=== PATIENT | male | born 1960 | race Caucasian/White ===

== ENCOUNTER → 2016-12-23 | Day surgery (SDC) | payer BC ==
[2016-12-16 11:35] VITALS: Ht 180.3 cm; Wt 97.7 kg
[~2016-12-23] VITALS: Ht 180.3 cm; Wt 97.7 kg
[~2016-12-23] MED LIST: ATOR10TA82 PO; LISI-786 PO; MESA800T5 PO; MRC50 PO; SODIUM CHLORIDE 0.9% 500ML 500 ML IV ONE; ZNT/300 PO
--- NOTE | 2016-12-23 14:08 | Endo History and Physical ---
History & Physical Date of Service: Dec 23, 2016. Chief Complaint: Crohn's Referring Physician: Dr. Hugh Li History of Present Illness 56 yo CM who presents for colonoscopy secondary to Crohn's Disease. Past Medical History High Cholesterol, Sleep Apnea, Hypertension, Other Past Surgical History Hx Cardiac Surgery: No Hx Internal Defibrillator: No Hx Pacemaker: No Hx Abdominal Surgery: No Hx of Implantable Prosthesis: No Hx Post-Op Nausea and Vomiting: No Hx Cancer Surgery: No Hx Thoracic Surgery: No Hx Orthopedic: No Hx Urinary Tract Surgery: No Family History IBD Social History Smoking Status: Never Smoker Hx Substance Use: No Hx Alcohol Use: Yes (RARELY) Allergies Coded Allergies: No Known Allergies (Verified , 12/23/16) Uncoded Allergies: NKA (Allergy, Unknown, 01/18/15) No Known Allergies Current Medications Reported Home Medications Medications Dose Route/Sig Max Daily Dose Days Date Category Dose Instructions Asacol Hd (Mesalamine) 800 Mg Tab 2 Tab PO TID 12/16/16 Reported Ranitidine HCl 300 Mg Tab 1 Tab PO HS 05/03/14 Reported Mercaptopurine 50 Mg Tab 1 Tab PO QAM 05/03/14 Reported Zestoretic (Lisinopril & Hydrochlorothiazi) 1 Tab Tab 1 Tab PO QAM 05/03/14 Reported 20/12.5 DOSE Lipitor (Atorvastatin Calcium) 10 Mg Tab 10 Mg PO HS 05/03/14 Reported Vital Signs Weight (Kilograms): 97.73 Height (Feet): 5 Height (Inches): 11 Date Time Temp Pulse Resp B/P Pulse Ox O2 Delivery O2 Flow Rate FiO2 12/23/16 13:48 36.7 85 20 157/97 95 Room Air Physical Exam General Appearance: WD/WN, no apparent distress Respiratory/Chest: Auscultation: breath sounds normal Cardiovascular: Heart Auscultation: RRR Abdomen: Bowel Sounds: normal Inspection & Palpation: soft, non-distended, no tenderness, guarding & rebound Assessment and Plan Assessment: 56 yo CM who presents for colonoscopy secondary to Crohn's Disease. Plan: Proceed with colonoscopy.
--- NOTE | 2016-12-23 14:49 | Discharge Instructions ---
Endoscopy Patient Instructions Date / Procedure(s) Performed Dec 23, 2016. Colonoscopy Allergy Information Coded Allergies: No Known Allergies (Verified , 12/23/16) Uncoded Allergies: NKA (Allergy, Unknown, 01/18/15) No Known Allergies Discharge Date / Findings Dec 23, 2016. Crohn's Disease s/p biopsies Diverticulosis Internal hemorrhoids Medication Instructions OK to resume all medications today as prescribed. Reported Home Medications Medications Dose Route/Sig Max Daily Dose Days Date Category Dose Instructions Asacol Hd (Mesalamine) 800 Mg Tab 2 Tab PO TID 12/16/16 Reported Ranitidine HCl 300 Mg Tab 1 Tab PO HS 05/03/14 Reported Mercaptopurine 50 Mg Tab 1 Tab PO QAM 05/03/14 Reported Zestoretic (Lisinopril & Hydrochlorothiazi) 1 Tab Tab 1 Tab PO QAM 05/03/14 Reported 20/.5 DOSE Lipitor (Atorvastatin Calcium) 10 Mg Tab 10 Mg PO HS 05/03/14 Reported Provider Instructions Activity Restrictions - No exercising or heavy lifting for 24 hours. - Do not drink alcohol the day of the procedure. - Do not drive a car or operate machinery until the day after the procedure. - Do not make any important decisions or sign important papers in 24 hours after the procedure. Following Day: - Return to full activity which may include returning to work/school. Diet Start your diet with liquids and light foods (jello, soup, juice, toast). Then eat your usual diet if not nauseated. Treatment For Common After Affects For mild abdominal pain, bloating, or excessive gas: - Rest - Eat lightly - Lie on right side Follow-Up Information Follow-up with Dr. Hugh Li as scheduled Anesthesia Information What You Should Know You have had a procedure that required some medicine to reduce anxiety and discomfort. This treatment is called moderate sedation. After receiving the treatment, you may be sleepy, but you will be able to breathe on your own. The effects of the treatment may last for several hours. Follow these instructions along with Activity/Diet recommendations noted above: * Do NOT do anything where dizziness or clumsiness would be dangerous. * Rest quietly at home today, then you can be up and about tomorrow. * Have a responsible person stay with you the rest of today. * You may have had an I.V. today. If so, you may take the dressing off later today. Recommendations Call your doctor if: * Trouble breathing * Continuous vomiting for more than 24 hours * Temperature above 101 degrees * Severe abdominal pain or bloating * Pain not relieved by pain medicine ordered * There is increased drainage or redness from any incision * A large amount of rectal bleeding greater than 2-3 tablespoons. (If you had a polyp/s removed or have hemorrhoids, a small amount of blood - from the rectum is to be expected.) * You have any unanswered questions or concerns. IN THE EVENT OF A SERIOUS EMERGENCY, GO TO THE NEAREST EMERGENCY ROOM Your discharge instructions were prepared by provider Michael Vickers. Patient Instructions Signature Page Jasbir Owens Patient (or Guardian) Signature/Date: I have read and understand the instructions given to me by my caregivers. Caregiver/RN/Doctor Signature/Date: The above-named patient and/or guardian has received patient instructions on this date. + Original Patient Signature Page (only) stays with chart. Please make copy for patient.
--- NOTE | 2016-12-23 14:57 | GI REPORT ---
Procedure Date: 12/23/2016 2:07 PM Procedure: Colonoscopy Indications: Disease activity assessment of Crohn's disease of the colon Medicines: Monitored Anesthesia Care Complications: No immediate complications. Estimated Blood Loss: Estimated blood loss: none. Procedure: Pre-Anesthesia Assessment: - Prior to the procedure, a History and Physical was performed, and patient medications and allergies were reviewed. The patient's tolerance of previous anesthesia was also reviewed. The risks and benefits of the procedure and the sedation options and risks were discussed with the patient. All questions were answered, and informed consent was obtained. Prior Anticoagulants: The patient has taken no previous anticoagulant or antiplatelet agents. ASA Grade Assessment: II - A patient with mild systemic disease. After reviewing the risks and benefits, the patient was deemed in satisfactory condition to undergo the procedure. After I obtained informed consent, the scope was passed under direct vision. Throughout the procedure, the patient's blood pressure, pulse, and oxygen saturations were monitored continuously. The scope was introduced through the anus and advanced to the terminal ileum. The colonoscopy was performed without difficulty. The patient tolerated the procedure well. The quality of the bowel preparation was good. The terminal ileum, ileocecal valve, appendiceal orifice, and rectum were photographed. Findings: Inflammation characterized by erythema was found. This was mild in severity. Biopsies were taken with a cold forceps for histology. Multiple small-mouthed diverticula were found in the sigmoid colon. Non-bleeding internal hemorrhoids were found during retroflexion. The hemorrhoids were small. Impression: - Inflammation was found secondary to Crohn's disease with colonic involvement. Biopsied. Recommendation: - Resume previous diet. - Continue present medications. - Await pathology results. - Return to primary care physician as previously scheduled. Michael Vickers DO 12/23/2016 2:56:16 PM This report has been signed electronically. Note Initiated On: 12/23/2016 2:07 PM I attest to the content of the Intraoperative Record and orders documented therein, exceptions below
--- NOTE | 2016-12-23 14:58 | Anesthesiology Progress Note ---
Anesthesia Post Op Note Date & Time Dec 23, 2016 at 14:57 Vital Signs Pain Intensity: 0 Vital Signs Past 12 Hours Date Time Temp Pulse Resp B/P Pulse Ox O2 Delivery O2 Flow Rate FiO2 12/23/16 14:43 75 20 157/97 95 Room Air 12/23/16 13:48 36.7 85 20 157/97 95 Room Air Notes Mental Status: alert / awake / arousable, participated in evaluation Pt Amnestic to Procedure: Yes Nausea / Vomiting: adequately controlled Pain: adequately controlled Airway Patency, RR, SpO2: stable & adequate BP & HR: stable & adequate Hydration State: stable & adequate Anesthetic Complications: no major complications apparent
[2016-12-23 15:20] VITALS: BP 93/106; PULSE 69; O2SAT 97
== END | disposition home or self-care (01) ==
LOC: C.GI 13:27
PROVIDERS: ATTEND Internal Medicine
DX: K50.90 Crohn's disease, unspecified, without complications (principal); K55.039 Acute (reversible) ischemia of large intestine, extent unspecified; K57.30 Diverticulosis of large intestine without perforation or abscess without bleeding; K64.8 Other hemorrhoids; E78.00 Pure hypercholesterolemia, unspecified; G47.30 Sleep apnea, unspecified; I10 Essential (primary) hypertension

== ENCOUNTER → 2017-01-20 | Outpatient (CLI) | payer BC ==
[~2017-01-20] MED LIST changes: -SODIUM CHLORIDE 0.9% 500ML 500 ML IV ONE
[2017-01-20 10:47] LABS: BASO % 0.4 %; BASO ABS # 0.02 K/uL (0-0.2); COMPLETE YES; EOS % 2.8 %; HEMATOCRIT 43.6 % (42-52); IG% 0.2 %; LYMPH % 19.6 %; MEAN CORPUSCULAR HGB CONC 34.9 g/dl (32-36); MEAN PLATELET VOLUME 10.9 fL (7.4-10.4); MONO % 9.1 %; NEUT % 67.9 %; PLATELET COUNT 159 K/uL (130-400); RED BLOOD COUNT 5.07 M/uL (4.7-6.1)
[2017-01-20 10:57] LABS: ALT/SGPT 61 U/L (12-78); BLOOD UREA NITROGEN 13 mg/dl (7-18); BUN/CREATININE RATIO 11.5 (10-20); CARBON DIOXIDE 29 mmol/L (21-32); CHLORIDE 103 mmol/L (98-107); CHOLESTEROL 183 mg/dl (0-200); GLUCOSE 190 mg/dl (70-99); POTASSIUM 3.8 mmol/L (3.5-5.1); SODIUM 142 mmol/L (136-145); TRIGLYCERIDES 757 mg/dl (0-150)
[2017-01-20 11:01] LABS: ALB/GLOB RATIO 1.3 (0.9-2); ALKALINE PHOSPHATASE 77 U/L (45-117); AST/SGOT 28 U/L (15-37); CHOLESTEROL/HDL RATIO 5.7; HDL CHOLESTEROL 32 mg/dl; PROSTATE SPECIFIC ANTIGEN 0.981 ng/ml (0.000-4.000)
[2017-01-20 11:23] LABS: ESTIMATED AVERAGE GLUCOSE 169 mg/dl; HA1C FLAG Normal (Normal)
[2017-01-20 14:09] LABS: URINE APPEARANCE CLEAR (CLEAR); URINE BILIRUBIN NEG (NEG); URINE COLOR YELLOW; URINE NITRITE NEG (NEG); URINE PH 6.5 (4.5-7.5); URINE SPECIFIC GRAVITY 1.018 (1.000-1.030); UROBILINOGEN NEG (NEG)
[2017-01-20 14:14] LABS: MANUAL MICROSCOPIC REQUIRED? NO; REVIEW REQ? NO
--- NOTE | 2017-01-26 10:19 | CODING QUERY MEDICAL NECESSITY ---
CQSUPPORTING DIAGNOSIS NEEDED A supporting diagnosis is required for the test/procedure performed on this patient in order for us to be reimbursed by the patient's insurance. Please provide a supporting diagnosis for the following test/procedure listed below next to the test name along with your signature. *If there is no additional diagnosis for this patient that would support the following test/procedure please document that below next to the test/procedure. Test(s)/Procedure(s) that require a supporting diagnosis: DOS 01/20/17 PROSTATE SPECIFIC Provider Signature: Date: Thank you Anushka Vasquez [employer] Once completed, please kindly fax back to [phone] For questions please call [phone]
== END | disposition home or self-care (01) ==
LOC: C.LABBC 07:31
PROVIDERS: ATTEND Internal Medicine Pulmonary Disease
DX: I10 Essential (primary) hypertension (principal); R73.9 Hyperglycemia, unspecified; G47.33 Obstructive sleep apnea (adult) (pediatric); K51.30 Ulcerative (chronic) rectosigmoiditis without complications; Z12.5 Encounter for screening for malignant neoplasm of prostate

== ENCOUNTER → 2017-07-28 | Outpatient (CLI) | payer BC ==
[2017-07-28 10:56] LABS: BASO % 0.3 %; BASO ABS # 0.02 K/uL (0-0.2); COMPLETE YES; EOS % 2.7 %; HEMATOCRIT 43.6 % (42-52); IG% 0.3 %; LYMPH % 16.4 %; LYMPH ABS # 0.97 K/uL (1.2-3.4); MEAN CELL VOLUME 87.2 fL (80-100); MEAN CORPUSCULAR HEMOGLOBIN 30.4 pg (25-34); MEAN CORPUSCULAR HGB CONC 34.9 g/dl (32-36); MEAN PLATELET VOLUME 10.9 fL (7.4-10.4); MONO % 9.8 %; NEUT % 70.5 %; PLATELET COUNT 147 K/uL (130-400); WHITE BLOOD COUNT 5.92 K/uL (4.8-10.8)
[2017-07-28 11:10] LABS: ESTIMATED AVERAGE GLUCOSE 140 mg/dl; HA1C FLAG Normal (Normal)
[2017-07-28 11:49] LABS: ALB/GLOB RATIO 1.1 (0.9-2); ALKALINE PHOSPHATASE 85 U/L (45-117); ALT/SGPT 58 U/L (12-78); AST/SGOT 24 U/L (15-37); BUN/CREATININE RATIO 15.4 (10-20); CALCIUM 9.1 mg/dl (8.5-10.1); CARBON DIOXIDE 32 mmol/L (21-32); CHLORIDE 102 mmol/L (98-107); CHOLESTEROL 196 mg/dl (0-200); CHOLESTEROL/HDL RATIO 5.8; CREATININE 1.03 mg/dl (0.60-1.40); GLUCOSE 175 mg/dl (70-99); HDL CHOLESTEROL 34 mg/dl; POTASSIUM 3.4 mmol/L (3.5-5.1); SODIUM 138 mmol/L (136-145); TRIGLYCERIDES 827 mg/dl (0-150)
[2017-07-28 11:50] LABS: BLOOD UREA NITROGEN 16 mg/dl (7-18)
== END | disposition home or self-care (01) ==
LOC: C.LABBC 07:32
PROVIDERS: ATTEND Internal Medicine Pulmonary Disease
DX: E78.5 Hyperlipidemia, unspecified (principal); I10 Essential (primary) hypertension; G47.33 Obstructive sleep apnea (adult) (pediatric); E11.9 Type 2 diabetes mellitus without complications; K51.30 Ulcerative (chronic) rectosigmoiditis without complications; K21.9 Gastro-esophageal reflux disease without esophagitis